=== PATIENT | male | born 1990 | race Two or more races ===

== ENCOUNTER 2023-09-27 12:17 | Emergency (ER) | payer OTHER ==
[~2023-09-27] VITALS: Ht 177.8 cm; Wt 72.0 kg
[~2023-09-27 12:17] MED LIST: AMLO10TA55 PO; ASPI81TA87 PO; CARV25 PO; CHLO473M6 PO; HYDR50TA36 PO; ISOS60TA77 PO; NIFE90TA91 PO; PARI1CAP11 PO
[2023-09-27 13:58] VITALS: BP 150/98; PULSE 69; RESP 16; TEMP 98.1
== END 2023-09-27 14:31 | disposition left against medical advice (07) ==
LOC: EMS 12:20
DX: I12.0 Hypertensive chronic kidney disease with stage 5 chronic kidney disease or end stage renal disease (principal); N18.6 End stage renal disease; Z99.2 Dependence on renal dialysis
CPT/HCPCS: 99283; Z7502

== ENCOUNTER 2023-10-11 15:34 | Inpatient (IN) | payer OTHER ==
[~2023-10-11] VITALS: Ht 177.8 cm; Wt 83.8 kg
[2023-10-11] VITALS (9 sets, daily range): BP systolic 141–151; BP diastolic 94–101; PULSE 71–90; RESP 16–20; TEMP 98; O2SAT 97–99
[~2023-10-11 15:34] MED LIST changes: +HEPARIN SODIUM,PORCINE 1,000 UNITS/ML VIAL IVP ONE
[2023-10-11 18:02] LABS: CREATININE 11.13 mg/dL (0.60-1.30); POTASSIUM 5.9 mmol/L (3.5-5.1)
[2023-10-11 18:07] LABS: ALBUMIN 3.5 g/dL (3.4-5.0); BILIRUBIN,TOTAL 0.5 mg/dL (0.1-1.0); TOTAL PROTEIN, SERUM 7.4 g/dL (6.4-8.2)
[2023-10-11 18:23] LABS: BASOPHILS % (AUTO) 1.2 % (0.0-2.0); EOSINOPHILS % (AUTO) 2.4 % (1.0-6.0); HEMATOCRIT 35.1 % (41-53); HEMOGLOBIN 11.3 g/dL (13.5-17.5); LYMPHOCYTES # (AUTO) 1.3 K/uL (1.0-4.8); LYMPHOCYTES % (AUTO) 18.3 % (22.0-44.0); MEAN CORPUSCULAR HEMOGLOBIN 29.6 pg (26.0-34.0); MEAN CORPUSCULAR HGB CONC 32.3 G/dL (31.0-37.0); MEAN CORPUSCULAR VOLUME 92 fL (80-100); MONOCYTES # (AUTO) 0.3 K/uL (0.1-1.0); MONOCYTES % (AUTO) 4.3 % (2.0-9.0); NEUTROPHILS # (AUTO) 5.4 K/uL (1.8-7.7); NEUTROPHILS % (AUTO) 73.8 % (40.0-70.0); RED BLOOD CELL COUNT(AUTO) 3.84 MIL/uL (4.50-5.90); WHITE BLOOD COUNT (AUTO) 7.3 K/uL (4.5-11.0)
[2023-10-11 18:26] LABS: PLATELET COUNT (AUTO) 90 K/uL (150-450); TROPONIN I-HIGH SENSITIVITY 12 ng/L (<76)
[2023-10-11] MEDS ORDERED: ACETAMINOPHEN 325 MG TABLET PO PRN (18:45)
[2023-10-11] MEDS ORDERED: ONDANSETRON HCL 4 MG/2 ML VIAL IVP PRN (18:45)
[2023-10-11] MEDS: SODIUM POLYSTYRENE SULFONATE 15 GM/60 ML SUSPENSION BOTTLE PO ONE (19:29)
[2023-10-11] MEDS: DEXTROSE 50%-WATER 25 GM/50 ML SYRINGE IVP ONE (19:30)
[2023-10-11] MEDS: INSULIN REGULAR, HUMAN 100 UNITS/ML SQ ONE (19:33)
[2023-10-11 19:56] LABS: GLUCOMETER DEV NAME(LOC) ER.7; GLUCOSE,POINT OF CARE 87 MG/DL (70-110)
[2023-10-11] MEDS ORDERED: 0.9% SODIUM CHLORIDE 5 ML NEB SOLUTION NEB ONE (20:33)
[2023-10-11] MEDS: ALBUTEROL SULFATE 2.5 MG/0.5 ML NEB SOLUTION NEB ONE (20:34)
[2023-10-11] MEDS: CARVEDILOL 25 MG TABLET PO SCH (22:30)
[2023-10-11] MEDS: AmLODIPine BESYLATE 5 MG TABLET PO SCH (23:00)
[2023-10-12] MEDS: HEPARIN SODIUM,PORCINE 5,000 UNITS/ML VIAL SQ SCH
[2023-10-12 00:15] VITALS: BP 150/105; PULSE 69; RESP 16
[2023-10-12 00:45] VITALS: BP 156/110; PULSE 68; RESP 16
[2023-10-12 01:15] VITALS: BP 158/112; PULSE 96; RESP 16
[2023-10-12 01:45] VITALS: BP 156/108; PULSE 72; RESP 19; TEMP 97.4
[2023-10-12 06:30] VITALS: BP 176/109; PULSE 59; RESP 18; TEMP 98.2
[2023-10-12] MEDS: HydrALAZINE HCL 50 MG TABLET PO SCH (07:08)
[2023-10-12 07:26] LABS: EOSINOPHILS % (AUTO) 2.6 % (1.0-6.0); HEMATOCRIT 30.8 % (41-53); HEMOGLOBIN 10.2 g/dL (13.5-17.5); LYMPHOCYTES # (AUTO) 1.4 K/uL (1.0-4.8); LYMPHOCYTES % (AUTO) 31.9 % (22.0-44.0); MEAN CORPUSCULAR HEMOGLOBIN 30.1 pg (26.0-34.0); MEAN CORPUSCULAR HGB CONC 33.1 G/dL (31.0-37.0); MEAN CORPUSCULAR VOLUME 91 fL (80-100); MONOCYTES # (AUTO) 0.3 K/uL (0.1-1.0); MONOCYTES % (AUTO) 6.2 % (2.0-9.0); NEUTROPHILS # (AUTO) 2.5 K/uL (1.8-7.7); NEUTROPHILS % (AUTO) 58.3 % (40.0-70.0); RED BLOOD CELL COUNT(AUTO) 3.39 MIL/uL (4.50-5.90); RED CELL DISTRIBUTION WIDTH 17.4 % (11.5-14.5); WHITE BLOOD COUNT (AUTO) 4.4 K/uL (4.5-11.0)
[2023-10-12 07:41] LABS: CALCIUM, TOTAL 7.6 mg/dL (8.8-10.5); CREATININE 6.88 mg/dL (0.60-1.30); MAGNESIUM 2.2 mg/dL (1.80-2.40); POTASSIUM 4.3 mmol/L (3.5-5.1)
[2023-10-12] MEDS: ISOSORBIDE MONONITRATE 60 MG ER TABLET PO SCH (08:16)
[2023-10-12] MEDS: ASPIRIN 81 MG DR TABLET PO SCH (08:16)
[2023-10-12] MEDS: CHLORHEXIDINE GLUCONATE 0.12% 15 ML UDCUP ORAL RINSE PO SCH (08:17)
[2023-10-12 08:18] VITALS: BP 173/122; PULSE 74; RESP 20; TEMP 97.9
[2023-10-12] MEDS ORDERED: AmLODIPine BESYLATE 10 MG TABLET PO SCH ×2 (09:00→23:00)
[2023-10-12 09:13] LABS: PLATELET COUNT (AUTO) 75 K/uL (150-450)
[2023-10-12] MEDS: NIFEdipine 90 MG ER TABLET PO SCH (09:54)
[2023-10-12] MEDS ORDERED: ACET-2247 PO (11:41)
[2023-10-12] MEDS ORDERED: MIDAZOLAM HCL 2 MG/2 ML VIAL IVP ONE (12:00)
[2023-10-12] MEDS ORDERED: FentaNYL CITRATE PF 100 MCG/2 ML VIAL IVP ONE (12:00)
[2023-10-13] MEDS ORDERED: PARICALCITOL 1 MCG CAPSULE PO SCH (09:00)
== END 2023-10-12 19:30 | DRG 640 ==
LOC: EMS 17:54 → EDH 20:16 → 6S 20:51
PROVIDERS: ADMIT Internal Medicine; ATTEND Internal Medicine
PROC: 5A1D70Z Performance of Urinary Filtration, Intermittent, Less than 6 Hours Per Day (ICD-10-PCS; principal; 2023-10-11)
DX: E87.5 Hyperkalemia (principal); N18.6 End stage renal disease; I13.2 Hypertensive heart and chronic kidney disease with heart failure and with stage 5 chronic kidney disease, or end stage renal disease; I50.9 Heart failure, unspecified; E11.22 Type 2 diabetes mellitus with diabetic chronic kidney disease; B19.20 Unspecified viral hepatitis C without hepatic coma; E21.3 Hyperparathyroidism, unspecified; Z79.899 Other long term (current) drug therapy; Z99.2 Dependence on renal dialysis; Z79.82 Long term (current) use of aspirin
CPT/HCPCS: 80048; 80053; 82962; 83735; 84484; 85025; 87340; 90935; 93005; 94640; 99285; J1644; J1815; J2250; J3010

== ENCOUNTER 2024-07-12 03:32 | Inpatient (IN) | payer OTHER ==
[2024-07-12] VITALS (10 sets, daily range): BP systolic 146–182; BP diastolic 85–117; PULSE 45–93; RESP 17–19; TEMP 97.8–98.2; O2SAT 100
[~2024-07-12] VITALS: Ht 177.8 cm; Wt 88.6 kg
[~2024-07-12 03:32] MED LIST changes: +ACET-2247 PO; -HEPARIN SODIUM,PORCINE 1,000 UNITS/ML VIAL IVP ONE
[2024-07-12 04:11] LABS: EOSINOPHILS % (AUTO) 1.7 % (1.0-6.0); HEMATOCRIT 40.4 % (41-53); HEMOGLOBIN 13.1 g/dL (13.5-17.5); LYMPHOCYTES # (AUTO) 0.3 K/uL (1.0-4.8); LYMPHOCYTES % (AUTO) 6.6 % (22.0-44.0); MEAN CORPUSCULAR HEMOGLOBIN 30.3 pg (26.0-34.0); MEAN CORPUSCULAR HGB CONC 32.3 G/dL (31.0-37.0); MEAN CORPUSCULAR VOLUME 94 fL (80-100); MONOCYTES # (AUTO) 0.3 K/uL (0.1-1.0); MONOCYTES % (AUTO) 6.6 % (2.0-9.0); NEUTROPHILS # (AUTO) 3.3 K/uL (1.8-7.7); NEUTROPHILS % (AUTO) 84.1 % (40.0-70.0); PLATELET COUNT (AUTO) 71 K/uL (150-450); RED BLOOD CELL COUNT(AUTO) 4.31 MIL/uL (4.50-5.90); RED CELL DISTRIBUTION WIDTH 15.6 % (11.5-14.5)
[2024-07-12 04:22] LABS: CALCIUM, TOTAL 7.6 mg/dL (8.8-10.5); CREATININE 8.1 mg/dL (0.60-1.30)
[2024-07-12 04:27] LABS: ALBUMIN 3.3 g/dL (3.4-5.0); BILIRUBIN,DIRECT 0.2 mg/dL (0.00-0.20); BILIRUBIN,TOTAL 0.5 mg/dL (0.1-1.0); TOTAL PROTEIN, SERUM 7.1 g/dL (6.4-8.2)
[2024-07-12] MEDS: FAMOTIDINE 20 MG/2 ML VIAL IVP ONE (05:02)
[2024-07-12] MEDS: ONDANSETRON HCL 4 MG/2 ML VIAL IVP ONE (05:02)
[2024-07-12 05:03] LABS: B-TYPE NATRIURETIC PEPTIDE 132 pg/mL (0-100); TROPONIN I-HIGH SENSITIVITY 13 ng/L (<76)
[2024-07-12] MEDS ORDERED: MORPHINE SULFATE 2 MG/ML SYRINGE IVP PRN (10:00)
[2024-07-12] MEDS ORDERED: ZOLPIDEM TARTRATE 5 MG TABLET PO PRN (10:00)
[2024-07-12] MEDS ORDERED: HYDROCODONE/ACETAMINOPHEN 5-325 MG TABLET PO PRN (10:00)
[2024-07-12] MEDS ORDERED: BISACODYL 10 MG RECTAL RECTAL SUPPOSITORY PR PRN (10:00)
[2024-07-12] MEDS ORDERED: MAGNESIUM HYDROXIDE SUSPENSION 30 ML UDCUP PO PRN (10:00)
[2024-07-12] MEDS ORDERED: ONDANSETRON HCL 4 MG/2 ML VIAL IVP PRN (10:00)
[2024-07-12] MEDS: PANTOPRAZOLE SODIUM 40 MG/VIAL IVP SCH (10:15)
[2024-07-12] MEDS ORDERED: HEPARIN SODIUM,PORCINE 1,000 UNITS/ML VIAL IVP PRN ×2 (11:30)
[2024-07-12] MEDS: BUPRENORPHINE HCL/NALOXONE HCL 2-0.5 MG SUBLINGUAL TABLET SL SCH (11:54)
[2024-07-12] MEDS ORDERED: HEPARIN SODIUM,PORCINE 1,000 UNITS/ML VIAL IVP ONE (12:00)
[2024-07-12] MEDS: HEPARIN SODIUM,PORCINE 1,000 UNITS/ML VIAL IVP PRN ×2 (15:14→15:15)
[2024-07-12] MEDS: HydrALAZINE HCL 50 MG TABLET PO SCH (15:20)
[2024-07-12] MEDS ORDERED: HEPARIN SODIUM,PORCINE 5,000 UNITS/ML VIAL SQ SCH (16:00)
[2024-07-12] MEDS: DOCUSATE SODIUM 100 MG CAPSULE PO SCH (20:36)
[2024-07-12] MEDS: ACETAMINOPHEN 325 MG TABLET PO PRN (20:38)
[2024-07-12] MEDS: CARVEDILOL 25 MG TABLET PO SCH (20:42)
[2024-07-13 00:19] VITALS: BP 106/72; PULSE 70; RESP 16; TEMP 98; O2SAT 98
[2024-07-13 04:00] VITALS: BP 135/86; PULSE 60; RESP 16; TEMP 97.7; O2SAT 98
[2024-07-13 06:14] LABS: BASOPHILS % (AUTO) 1.8 % (0.0-2.0); EOSINOPHILS % (AUTO) 3.6 % (1.0-6.0); HEMOGLOBIN 13.7 g/dL (13.5-17.5); LYMPHOCYTES # (AUTO) 1.7 K/uL (1.0-4.8); LYMPHOCYTES % (AUTO) 39.7 % (22.0-44.0); MEAN CORPUSCULAR HEMOGLOBIN 30.5 pg (26.0-34.0); MEAN CORPUSCULAR HGB CONC 32.6 G/dL (31.0-37.0); MEAN CORPUSCULAR VOLUME 93 fL (80-100); MONOCYTES # (AUTO) 0.4 K/uL (0.1-1.0); MONOCYTES % (AUTO) 9.2 % (2.0-9.0); NEUTROPHILS # (AUTO) 1.9 K/uL (1.8-7.7); NEUTROPHILS % (AUTO) 45.7 % (40.0-70.0); PLATELET COUNT (AUTO) 79 K/uL (150-450); RED CELL DISTRIBUTION WIDTH 15.2 % (11.5-14.5); WHITE BLOOD COUNT (AUTO) 4.2 K/uL (4.5-11.0)
[2024-07-13 06:23] LABS: CALCIUM, TOTAL 7.9 mg/dL (8.8-10.5); CREATININE 7.32 mg/dL (0.60-1.30); POTASSIUM 4.8 mmol/L (3.5-5.1)
[2024-07-13 08:04] VITALS: BP 145/98; PULSE 67; RESP 17; TEMP 97.5; O2SAT 97
[2024-07-13] MEDS ORDERED: AmLODIPine BESYLATE 10 MG TABLET PO SCH (09:00)
[2024-07-13] MEDS ORDERED: PANTOPRAZOLE SODIUM 40 MG DR TABLET PO SCH (09:00)
[2024-07-13] MEDS: ISOSORBIDE MONONITRATE 60 MG ER TABLET PO SCH (09:19)
[2024-07-13] MEDS: NIFEdipine 90 MG ER TABLET PO SCH (09:19)
[2024-07-13] MEDS: ASPIRIN 81 MG DR TABLET PO SCH (09:19)
[2024-07-13] MEDS: SEVELAMER CARBONATE 800 MG TABLET PO SCH (12:13)
[2024-07-13 13:17] VITALS: BP 104/57; PULSE 79; RESP 18; TEMP 97.6; O2SAT 98
[2024-07-13] MEDS ORDERED: BUPR1FIL5 SL (15:56)
[2024-07-13] MEDS ORDERED: PANT-31 PO (15:56)
[2024-07-13] MEDS ORDERED: SEVE800T7 PO (15:57)
[2024-07-13] MEDS ORDERED: SODI10PO3 PO (15:58)
[2024-07-13 16:32] VITALS: BP 109/66; PULSE 71; RESP 20; TEMP 97.8; O2SAT 97
[2024-07-13 20:18] VITALS: BP 101/46; PULSE 76; RESP 18; TEMP 97.8; O2SAT 98
[2024-07-14] MEDS ORDERED: PARICALCITOL 1 MCG CAPSULE PO SCH (09:00)
== END 2024-07-13 23:45 | DRG 391 ==
LOC: EMS 03:32 → EDH 05:54 → 5S 10:40
PROVIDERS: ADMIT Internal Medicine; ATTEND Internal Medicine
PROC: 5A1D70Z Performance of Urinary Filtration, Intermittent, Less than 6 Hours Per Day (ICD-10-PCS; principal; 2024-07-12)
DX: K29.70 Gastritis, unspecified, without bleeding (principal); N18.6 End stage renal disease; N25.81 Secondary hyperparathyroidism of renal origin; I13.2 Hypertensive heart and chronic kidney disease with heart failure and with stage 5 chronic kidney disease, or end stage renal disease; Z94.0 Kidney transplant status; E87.6 Hypokalemia; B18.2 Chronic viral hepatitis C; E87.5 Hyperkalemia; D64.9 Anemia, unspecified; I50.9 Heart failure, unspecified; Z79.82 Long term (current) use of aspirin; Z79.899 Other long term (current) drug therapy; Z86.19 Personal history of other infectious and parasitic diseases; Z87.11 Personal history of peptic ulcer disease; Z99.2 Dependence on renal dialysis
CPT/HCPCS: 76700; 80048; 80076; 83690; 83880; 84484; 85025; 87081; 87340; 90935; 93005; 96374; 96375; 99285; J1644; J2405; J2470; J3490